=== PATIENT | male | born 1965 | race Caucasian/White ===

== ENCOUNTER 2017-04-01 12:21 | Inpatient (IN) | payer BC ==
[~2017-04-01] VITALS: Ht 172.7 cm; Wt 80.7 kg
[2017-04-01 12:45] VITALS: BP 130/80
[2017-04-01] MEDS ORDERED: dilTIAZem HCl 25mg/5ml Inj IVP ONE (12:45)
[2017-04-01 12:53] VITALS: BP 123/72
--- NOTE | 2017-04-01 12:54 | Emergency Room Report ---
History of Present Illness General Chief Complaint: Chest Pain Source: Patient Present Illness HPI 52-year-old male, history of SVT in the past, hyperlipidemia, p/w chest pressure and palpitations one hour. Chest pain started while he was just standing outside, and not exerting himself. Pressure localized to substernal area, no radiation to back or other areas, sharp in nature. + SOB. Denies palpitations, diaphoresis, n/v. Denies fever, chills, cough, abd pain. Denies trauma. Denies smoking, no family history of cardiac disease at a young age. Patient states that this has happened twice in the past, stated that he had 2 hospital to stabilize his heart rate. States he only takes aspirin however no other anticoagulation Allergies: Coded Allergies: No Known Allergies (Unverified , 04/01/17) Patient History Past Medical History: see triage record Past Surgical History: none Pertinent Family History: none Reviewed Nursing Documentation: PMH: Agreed, PSxH: Agreed Nursing Documentation-PMH Hx Cardiac Problems: Yes - a-fib Review of Systems All Other Systems: negative except mentioned in HPI Physical Exam Vital Signs Date Time Temp Pulse Resp B/P (MAP) Pulse Ox O2 Delivery O2 Flow Rate FiO2 04/01/17 12:18 97.8 140 18 110/80 98 Room Air 97.9 Sp02 EP Interpretation: reviewed, normal General Appearance: alert, GCS 15, non-toxic, moderate distress Head: normocephalic, atraumatic Eyes: bilateral eye normal inspection, bilateral eye PERRL, bilateral eye EOMI ENT: normal ENT inspection, normal pharynx, normal voice, moist mucus membranes Neck: normal inspection, full range of motion, supple Respiratory: normal inspection, lungs clear, normal breath sounds, no respiratory distress, no retraction, no wheezing, speaking full sentences, chest symmetrical Cardiovascular #1: no edema, tachycardia, irregularly irregular Cardiovascular #2: 2+ radial (R), 2+ radial (L) Gastrointestinal: normal inspection, non tender, soft, non-distended, no guarding Genitourinary: no CVA tenderness Musculoskeletal: normal inspection, back normal, normal range of motion, non- tender Neurologic: normal inspection, alert, oriented x3, responsive, motor strength/ tone normal, sensory intact, normal gait, speech normal Psychiatric: normal inspection, judgement/insight normal, memory normal Skin: normal inspection, normal color, no rash, warm/dry, well hydrated, normal turgor Procedures Critical Care Time Critical Care Time 40 minutes of CC time 52-year-old male, chest pain Found to be in atrial fibrillation with RVR VS: Tachycardic Airway patent. Not hypoxic. PLAN: IV access, labs, Cardizem Anticipate admission to Tele vs. [facility] CC time also includes review of labs, review of EMR, discussion with family and paperwork from SNF, d/w hospitalist CC could include dosing of pressors, additional Abx CC time does not include procedures Medical Decision Making Diagnostic Impression: Primary Impression: Atrial fibrillation with rapid ventricular response Additional Impression: ACS (acute coronary syndrome) ER Course 52-year-old male with chest pain, palpitations DDX: Found to be in atrial fibrillation with RVR ACS vs. CHF vs. pneumonia vs. gastritis/GERD vs. pneumothorax PE on differential however at this time there are other more likely diagnoses. Plan: IV access, obtain labs including troponin, EKG, CXR ASA already given by EMS Cardizem Anticipate admission ER course: Patient given Cardizem, heart rate went from 168 to 85. Now in normal sinus rhythm Disposition: Patient requires admission for atrial fibrillation D/W hospitalistn Dr Artis Please note that this Emergency Department Report was dictated using [employer] technology software, occasionally this can lead to erroneous entry secondary to interpretation by the dictation equipment. EKG Diagnostic Results #2 EP Interpretation: Yes Rate: tachy Rhythm: afib ST Segments: afib with rvr ASA given to patient: Yes EKG Diagnostic Results EP Interpretation: Yes Rate: normal Rhythm: afib ST Segments: No acute changes ASA given to patient: Yes Rhythm Strip EP Interpretation: Yes Rate: 160 Rhythm: afib Chest X-ray CXR: Ordered: Yes 1 view Indication: Chest pain EP interpretation: Yes Interpretation: No consolidation, no effusion, no PTX, no acute cardiopulmonary disease Impression: No acute disease Electronically signed by Caleb Nguyen MD Laboratory Tests Test 04/01/17 12:30 White Blood Count 8.4 K/UL (4.8-10.8) Red Blood Count 5.08 M/UL (4.70-6.10) Hemoglobin 16.1 G/DL (14.2-18.0) Hematocrit 44.2 % (42.0-52.0) Mean Corpuscular Volume 87 FL (80-99) Mean Corpuscular Hemoglobin 31.7 PG (27.0-31.0) H Mean Corpuscular Hemoglobin Concent 36.4 G/DL (32.0-36.0) H Red Cell Distribution Width 10.2 % (11.6-14.8) L Platelet Count 296 K/UL (150-450) Mean Platelet Volume 9.0 FL (6.5-10.1) Neutrophils (%) (Auto) 74.7 % (45.0-75.0) Lymphocytes (%) (Auto) 17.9 % (20.0-45.0) L Monocytes (%) (Auto) 6.0 % (1.0-10.0) Eosinophils (%) (Auto) 0.4 % (0.0-3.0) Basophils (%) (Auto) 1.1 % (0.0-2.0) Sodium Level 138 MMOL/L (136-145) Potassium Level 3.8 MMOL/L (3.5-5.1) Chloride Level 102 MMOL/L (98-107) Carbon Dioxide Level 25 MMOL/L (21-32) Anion Gap 12 mmol/L (5-15) Blood Urea Nitrogen 10 mg/dL (7-18) Creatinine 1.1 MG/DL (0.55-1.30) Estimate Glomerular Filtration Rate > 60 mL/min (>60) Glucose Level 146 MG/DL (74-106) H Calcium Level 9.9 MG/DL (8.5-10.1) Total Bilirubin 0.3 MG/DL (0.2-1.0) Aspartate Amino Transferase (AST) 25 U/L (15-37) Alanine Aminotransferase (ALT) 85 U/L (12-78) H Alkaline Phosphatase 89 U/L (46-116) Troponin I 0.000 ng/mL (0.000-0.056) Pro-B-Type Natriuretic Peptide 35 pg/mL (0-125) Total Protein 8.0 G/DL (6.4-8.2) Albumin 4.1 G/DL (3.4-5.0) Globulin 3.9 g/dL Albumin/Globulin Ratio 1.1 (1.0-2.7) Last Vital Signs Date Time Temp Pulse Resp B/P (MAP) Pulse Ox O2 Delivery O2 Flow Rate FiO2 04/01/17 12:18 97.8 140 18 110/80 98 Room Air 97.9 Disposition: ADMITTED INPATIENT Condition: Serious Referrals: NOT CHOSEN DOMINICK/,REFERRING (PCP) Caleb Nguyen M.D. Apr 01, 2017 12:54
[2017-04-01] MEDS ORDERED: dilTIAZem HCl 30mg tab ORAL ONE (13:00)
[2017-04-01] MEDS: Lexiscan 0.4mg/5ml syringe IV SCH (13:00)
[2017-04-01 13:01] LABS: BASOPHILS % (AUTO) 1.1 % (0.0-2.0); EOSINOPHILS % (AUTO) 0.4 % (0.0-3.0); HEMATOCRIT 44.2 % (42.0-52.0); HEMOGLOBIN 16.1 G/DL (14.2-18.0); LYMPHOCYTES % (AUTO) 17.9 % (20.0-45.0); MEAN CORPUSCULAR VOLUME 87 FL (80-99); NEUTROPHILS % (AUTO) 74.7 % (45.0-75.0); PLATELET COUNT 296 K/UL (150-450); RED BLOOD COUNT 5.08 M/UL (4.70-6.10); RED CELL DISTRIBUTION WIDTH 10.2 % (11.6-14.8); WHITE BLOOD COUNT 8.4 K/UL (4.8-10.8)
[2017-04-01 13:06] LABS: ANION GAP 12 mmol/L (5-15); BLOOD UREA NITROGEN 10 mg/dL (7-18); CALCIUM 9.9 MG/DL (8.5-10.1); CARBON DIOXIDE 25 MMOL/L (21-32); CHLORIDE 102 MMOL/L (98-107); CREATININE 1.1 MG/DL (0.55-1.30); POTASSIUM 3.8 MMOL/L (3.5-5.1); SODIUM 138 MMOL/L (136-145)
--- NOTE | 2017-04-01 13:11 | Diagnostic Imaging Report ---
Indication: Chest pain Technique: One view of the chest Comparison: none Findings: Lungs and pleural spaces are clear. Heart size is normal Impression: No acute process
[2017-04-01 13:18] LABS: ALANINE AMINOTRANSFERASE 85 U/L (12-78); ALBUMIN 4.1 G/DL (3.4-5.0); ALBUMIN/GLOBULIN RATIO 1.1 (1.0-2.7); ALKALINE PHOSPHATASE 89 U/L (46-116); ASPARTATE AMINO TRANSFERASE 25 U/L (15-37); BILIRUBIN,TOTAL 0.3 MG/DL (0.2-1.0)
[2017-04-01] MEDS ORDERED: ASPIRIN81 M3 PO (14:10)
[2017-04-01 14:11] VITALS: BP 130/85
[2017-04-01 16:00] VITALS: BP 130/89
[2017-04-01] MEDS ORDERED: Nitroglycerin Subl 0.4mg tab SL PRN (16:15)
--- NOTE | 2017-04-01 16:42 | Cardiac Electrophysiology PN ---
Subjective Subjective Dictated [id number] Objective Last 24 Hour Vital Signs Date Time Temp Pulse Resp B/P (MAP) Pulse Ox O2 Delivery O2 Flow Rate FiO2 04/01/17 16:00 97.5 72 18 130/89 99 Room Air 97.5 04/01/17 14:50 98.5 78 16 130/85 98 Room Air 98.3 04/01/17 14:11 98.3 87 22 130/85 99 Room Air 98.3 04/01/17 13:02 92 123/72 04/01/17 12:53 92 18 123/72 99 Room Air 04/01/17 12:48 150 145/70 04/01/17 12:45 140 18 130/80 98 Room Air 04/01/17 12:28 140 18 Room Air 04/01/17 12:18 97.8 140 18 110/80 98 Room Air 97.9 Laboratory Tests Test 04/01/17 12:30 White Blood Count 8.4 K/UL (4.8-10.8) Red Blood Count 5.08 M/UL (4.70-6.10) Hemoglobin 16.1 G/DL (14.2-18.0) Hematocrit 44.2 % (42.0-52.0) Mean Corpuscular Volume 87 FL (80-99) Mean Corpuscular Hemoglobin 31.7 PG (27.0-31.0) H Mean Corpuscular Hemoglobin Concent 36.4 G/DL (32.0-36.0) H Red Cell Distribution Width 10.2 % (11.6-14.8) L Platelet Count 296 K/UL (150-450) Mean Platelet Volume 9.0 FL (6.5-10.1) Neutrophils (%) (Auto) 74.7 % (45.0-75.0) Lymphocytes (%) (Auto) 17.9 % (20.0-45.0) L Monocytes (%) (Auto) 6.0 % (1.0-10.0) Eosinophils (%) (Auto) 0.4 % (0.0-3.0) Basophils (%) (Auto) 1.1 % (0.0-2.0) Sodium Level 138 MMOL/L (136-145) Potassium Level 3.8 MMOL/L (3.5-5.1) Chloride Level 102 MMOL/L (98-107) Carbon Dioxide Level 25 MMOL/L (21-32) Anion Gap 12 mmol/L (5-15) Blood Urea Nitrogen 10 mg/dL (7-18) Creatinine 1.1 MG/DL (0.55-1.30) Estimat Glomerular Filtration Rate > 60 mL/min (>60) Glucose Level 146 MG/DL (74-106) H Calcium Level 9.9 MG/DL (8.5-10.1) Total Bilirubin 0.3 MG/DL (0.2-1.0) Aspartate Amino Transf (AST/SGOT) 25 U/L (15-37) Alanine Aminotransferase (ALT/SGPT) 85 U/L (12-78) H Alkaline Phosphatase 89 U/L (46-116) Troponin I 0.000 ng/mL (0.000-0.056) Pro-B-Type Natriuretic Peptide 35 pg/mL (0-125) Total Protein 8.0 G/DL (6.4-8.2) Albumin 4.1 G/DL (3.4-5.0) Globulin 3.9 g/dL Albumin/Globulin Ratio 1.1 (1.0-2.7) TUCKER BUSH Apr 01, 2017 16:42
[2017-04-01 20:00] VITALS: BP 136/83
[2017-04-02] VITALS: BP 132/85
--- NOTE | 2017-04-02 | Consultation ---
DATE OF CONSULTATION: 04/01/2017 CARDIAC ELECTROPHYSIOLOGY CONSULTATION CONSULTING PHYSICIAN: Branden Viera M.D. REFERRING PHYSICIAN: Es Donaldson M.D. REASON FOR CONSULTATION: Atrial fibrillation with rapid ventricular response. HISTORY OF PRESENT ILLNESS: The patient is a very pleasant 52-year-old, [place] gentleman with history of SVT versus atrial fibrillation last year and hyperlipidemia who presented to the emergency room with sudden onset of chest pain and palpitations lasting about an hour. This happened while he was just standing and not exerting himself. He did not have any radiation to the back and other areas. In the emergency room, the patient was found to be in atrial fibrillation with rapid ventricular response with heart rate of 150 beats per minute with marked ST abnormalities with inferior subendocardial injury. The patient states that it has happened twice in the past . The patient does not have a regular social contact worker and takes only aspirin. PAST MEDICAL HISTORY: History of SVT versus atrial fibrillation. SOCIAL HISTORY: He lives at home. Does not smoke or drink alcohol. Does not do any drugs. FAMILY HISTORY: Noncontributory. REVIEW OF SYSTEMS: His review of systems was performed and was negative other than what was mentioned in history of present illness. PHYSICAL EXAMINATION: VITAL SIGNS: Blood pressure is 130/109; pulse is 72, as he converted to sinus rhythm; respirations 18; and he is afebrile. HEAD AND NECK: No JVD or carotid bruits. LUNGS: Clear. CARDIOVASCULAR: Regular S1 and S2. No gallop or murmur. ABDOMEN: Soft. EXTREMITIES: No pitting edema. LABORATORY AND DIAGNOSTIC DATA: His initial EKG on 04/01/2017 at 1224 hours showed atrial fibrillation with rapid ventricular response of [address]-T wave abnormalities. His EKG on 04/01/2017 at 1302 hours showed atrial fibrillation at a rate of 93 with LVH. Labs show white count of 8.4, hemoglobin of 16.1, hematocrit 44.2, and platelet count of 296. Sodium 138, potassium 3.8, BUN of 10, creatinine 1.1, and glucose of 146. His troponin is negative. BNP is 35. ASSESSMENT AND PLAN: 1. Recurrent atrial fibrillation with rapid ventricular response. The patient is on Lovenox 1 mg/kg subcutaneous b.i.d. at this time and we will start him on Cardizem CD 180 mg daily. We will start him also on flecainide 50 mg b.i.d. if his echocardiogram shows normal left ventricular systolic function and if his nuclear stress test tomorrow shows no evidence of ischemia. 2. Chest pain and ischemia on the 12-lead EKG. We will completely rule out myocardial infarction protocol. We will get an echocardiogram and schedule for nuclear stress test for further evaluation. In the meantime, continue the patient on aspirin. 3. Hyperlipidemia. Resume Lipitor. Thank you very much, Dr. Donaldson, for allowing me to participate in the care of this patient. Please do not hesitate to contact me for any questions regarding my evaluation. Branden Viera M.D. DR: Aleisha JOB#: [id number] CC:
[2017-04-02 03:15] LABS: BASOPHILS % (AUTO) 1.8 % (0.0-2.0); EOSINOPHILS % (AUTO) 1.4 % (0.0-3.0); HEMATOCRIT 44.1 % (42.0-52.0); HEMOGLOBIN 15.6 G/DL (14.2-18.0); LYMPHOCYTES % (AUTO) 28.5 % (20.0-45.0); MEAN CORPUSCULAR VOLUME 88 FL (80-99); MONOCYTES % (AUTO) 10.2 % (1.0-10.0); NEUTROPHILS % (AUTO) 58.1 % (45.0-75.0); PLATELET COUNT 287 K/UL (150-450); RED BLOOD COUNT 5.01 M/UL (4.70-6.10); RED CELL DISTRIBUTION WIDTH 10.4 % (11.6-14.8); WHITE BLOOD COUNT 6.9 K/UL (4.8-10.8)
[2017-04-02 03:34] LABS: ANION GAP 5 mmol/L (5-15); BLOOD UREA NITROGEN 16 mg/dL (7-18); CALCIUM 9.4 MG/DL (8.5-10.1); CARBON DIOXIDE 29 MMOL/L (21-32); CHLORIDE 102 MMOL/L (98-107); CREATININE 1.1 MG/DL (0.55-1.30); POTASSIUM 4.4 MMOL/L (3.5-5.1); SODIUM 136 MMOL/L (136-145)
[2017-04-02 04:00] VITALS: BP 125/85
[2017-04-02 08:00] VITALS: BP 137/82
[2017-04-02] MEDS: Aspirin Baby 81mg ORAL SCH (08:54)
[2017-04-02] MEDS: dilTIAZem HCl CD 180mg cap ORAL SCH (08:57)
[2017-04-02 12:00] VITALS: BP 134/87
--- NOTE | 2017-04-02 13:13 | Cardiology Report ---
APPROVED REPORT EXAM: Two-dimensional and M-mode echocardiogram with Doppler and color Doppler. INDICATION Palpitations M-Mode DIMENSIONS IVSd1.3 (0.7-1.1cm)Left Atrium (MM)3.1 (1.6-4.0cm) LVDd4.5 (3.5-5.6cm)Aortic Root3.3 (2.0-3.7cm) PWd1.1 (0.7-1.1cm)Aortic Cusp Exc.1.9 (1.5-2.0cm) LVDs3.2 (2.5-4.0cm) PWs1.7 cm Normal left ventricular chamber size, systolic function and wall motion. Left ventricular ejection fraction estimated to be 60-65 %. Mild left ventricular hypertrophy. No evidence of pericardial effusion. Mild right atrial enlargement. All other cardiac chamber sizes are within normal limits. Mild focal aortic valve sclerosis with adequate cusp excursion. Mildly thickened mitral valve leaflets with normal excursion. Mild mitral annulus and aortic root calcification. Normal pulmonic valve structure. Normal tricuspid valve structure. IVC at normal size with physiologic collapse. A color flow and spectral Doppler study was performed and revealed: Trace aortic regurgitation. Mild mitral regurgitation. Mitral diastolic velocities suggest reduced left ventricular relaxation c/w mild LV diastolic dysfunction (Grade I ). Mild tricuspid regurgitation. Tricuspid systolic velocities suggests peak right ventricular systolic pressure of 36 mmHg, consistent with mild pulmonary hypertension. Mild pulmonic regurgitation present.
--- NOTE | 2017-04-02 13:24 | Consultation ---
History of Present Illness General Date patient seen: Apr 02, 2017 Chief Complaint: Chest Pain Present Illness HPI 52-year-old male, history of SVT , hyperlipidemia, p/w chest pressure and palpitations one hour prior to presentation . + SOB. Denies smoking, no family history of cardiac disease at a young age. Patient states that this has happened twice in the past, stated that he had 2 hospital to stabilize his heart rate. He was in afib in ER but on the floor he was in sinus. He is admitted to rule our ACS and monitor his heart rate and rhythm. Allergies: Coded Allergies: No Known Allergies (Unverified , 04/01/17) Medication History Miscellaneous Medications Aspirin (Aspirin), 81 MG PO, (Reported) Patient History Healthcare decision maker Resuscitation status Full Code Advanced Directive on File No Past Medical/Surgical History Past Medical/Surgical History: (1) Atrial fibrillation with rapid ventricular response Review of Systems Cardiovascular: Reports: chest pain, palpitations All Other Systems: negative except mentioned in HPI Physical Exam General Appearance: WD/WN Lines, tubes and drains: peripheral HEENT: normocephalic, atraumatic Respiratory/Chest: chest wall non-tender, lungs clear Breasts: no masses Cardiovascular/Chest: normal peripheral pulses Genitourinary/Rectal: normal genital exam Extremities: normal range of motion Skin Exam: normal pigmentation 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 grossly normal Last 24 Hour Vital Signs Date Time Temp Pulse Resp B/P (MAP) Pulse Ox O2 Delivery O2 Flow Rate FiO2 04/02/17 12:00 98.1 65 20 134/87 96 Room Air 98.1 04/02/17 12:00 61 04/02/17 08:57 72 137/82 04/02/17 08:00 70 04/02/17 08:00 97.7 71 20 137/82 95 Room Air 97.7 04/02/17 04:00 97.5 64 18 125/85 96 Room Air 97.5 04/02/17 04:00 62 04/02/17 00:00 66 04/02/17 00:00 98.1 76 20 132/85 96 Room Air 98.1 04/01/17 20:00 97.9 79 20 136/83 96 Room Air 97.9 04/01/17 20:00 75 04/01/17 16:00 97.5 72 18 130/89 99 Room Air 97.5 04/01/17 16:00 73 04/01/17 14:50 98.5 78 16 130/85 98 Room Air 98.3 04/01/17 14:11 98.3 87 22 130/85 99 Room Air 98.3 Intake and Output 04/01/17 04/02/17 19:00 07:00 Intake Total 270 ml 300 ml Balance 270 ml 300 ml Intake Oral 120 ml 300 ml IV Total 150 ml # Bowel Movements 1 Laboratory Tests Test 04/01/17 19:15 04/02/17 02:50 D-Dimer 0.26 mg/L FEU (0.00-0.49) Troponin I 0.011 ng/mL (0.000-0.056) 0.003 ng/mL (0.000-0.056) White Blood Count 6.9 K/UL (4.8-10.8) Red Blood Count 5.01 M/UL (4.70-6.10) Hemoglobin 15.6 G/DL (14.2-18.0) Hematocrit 44.1 % (42.0-52.0) Mean Corpuscular Volume 88 FL (80-99) Mean Corpuscular Hemoglobin 31.0 PG (27.0-31.0) Mean Corpuscular Hemoglobin Concent 35.3 G/DL (32.0-36.0) Red Cell Distribution Width 10.4 % (11.6-14.8) L Platelet Count 287 K/UL (150-450) Mean Platelet Volume 9.4 FL (6.5-10.1) Neutrophils (%) (Auto) 58.1 % (45.0-75.0) Lymphocytes (%) (Auto) 28.5 % (20.0-45.0) Monocytes (%) (Auto) 10.2 % (1.0-10.0) H Eosinophils (%) (Auto) 1.4 % (0.0-3.0) Basophils (%) (Auto) 1.8 % (0.0-2.0) Sodium Level 136 MMOL/L (136-145) Potassium Level 4.4 MMOL/L (3.5-5.1) Chloride Level 102 MMOL/L (98-107) Carbon Dioxide Level 29 MMOL/L (21-32) Anion Gap 5 mmol/L (5-15) Blood Urea Nitrogen 16 mg/dL (7-18) Creatinine 1.1 MG/DL (0.55-1.30) Estimat Glomerular Filtration Rate > 60 mL/min (>60) Glucose Level 103 MG/DL (74-106) Calcium Level 9.4 MG/DL (8.5-10.1) Pro-B-Type Natriuretic Peptide 62 pg/mL (0-125) Thyroid Stimulating Hormone (TSH) 2.268 uiU/mL (0.358-3.740) Free Thyroxine 0.89 NG/DL (0.76-1.46) Height (Feet): 5 Height (Inches): 8.00 Weight (Pounds): 178 Medications Current Medications Medications (Trade) Dose Ordered Sig/Yadira Route PRN Reason Start Time Stop Time Status Last Admin Dose Admin Acetaminophen (Tylenol) 650 mg Q4H PRN ORAL Mild Pain/Temp > 100.5 04/01/17 16:15 05/01/17 16:14 Aspirin (ASA) 81 mg DAILY ORAL 04/02/17 09:00 05/02/17 08:59 04/02/17 08:54 Diltiazem HCl (Cardizem CD) 180 mg DAILY ORAL 04/02/17 09:00 05/02/17 08:59 04/02/17 08:57 Nitroglycerin (Ntg) 0.4 mg Q5MIN X 3 DOSES PRN SL Prn Chest Pain 04/01/17 16:15 05/01/17 16:14 Regadenoson (Lexiscan) 0.4 mg ONCE IV 04/01/17 17:00 04/02/17 23:59 Assessment/Plan Problem List: (1) ACS (acute coronary syndrome) ICD Codes: I24.9 - Acute ischemic heart disease, unspecified SNOMED: 104381224 (2) Atrial fibrillation with rapid ventricular response ICD Codes: I48.91 - Unspecified atrial fibrillation SNOMED: 531200792789980 Assessment/Plan serial troponin, echo, cariology to follow f/u stress test results. symptomatic treatment BRAD GARZA Apr 02, 2017 13:24
--- NOTE | 2017-04-02 15:06 | Cardiology Report ---
APPROVED REPORT EKG Measurement Heart [id number] Normal sinus rhythm Normal ECG
--- NOTE | 2017-04-02 15:09 | Cardiology Report ---
APPROVED REPORT EKG Measurement Heart [id number] Atrial fibrillation Minimal voltage criteria for LVH, may be normal variant Abnormal ECG
[2017-04-02 16:00] VITALS: BP 125/77
--- NOTE | 2017-04-02 16:34 | Cardiac Electrophysiology PN ---
Assessment/Plan Assessment/Plan 1. Recurrent atrial fibrillation with rapid ventricular response. On Cardizem CD 180 mg daily and aspirin. Start him on flecainide 50 mg b.i.d. as his echocardiogram shows normal left ventricular systolic function 2. Chest pain and ischemia on the 12-lead EKG. Ruled out myocardial infarction and echocardiogram showed Nl EF. Nuclear stress test result pending 3. Hyperlipidemia. Resume Lipitor. Subjective Subjective Just had nuclear stress test today. Remained in SR Objective Last 24 Hour Vital Signs Date Time Temp Pulse Resp B/P (MAP) Pulse Ox O2 Delivery O2 Flow Rate FiO2 04/02/17 16:00 97.9 72 20 125/77 96 Room Air 97.9 04/02/17 12:00 98.1 65 20 134/87 96 Room Air 98.1 04/02/17 12:00 61 04/02/17 08:57 72 137/82 04/02/17 08:00 70 04/02/17 08:00 97.7 71 20 137/82 95 Room Air 97.7 04/02/17 04:00 97.5 64 18 125/85 96 Room Air 97.5 04/02/17 04:00 62 04/02/17 00:00 66 04/02/17 00:00 98.1 76 20 132/85 96 Room Air 98.1 04/01/17 20:00 97.9 79 20 136/83 96 Room Air 97.9 04/01/17 20:00 75 Intake and Output 04/01/17 04/02/17 19:00 07:00 Intake Total 270 ml 300 ml Balance 270 ml 300 ml Intake Oral 120 ml 300 ml IV Total 150 ml # Bowel Movements 1 Laboratory Tests Test 04/01/17 19:15 04/02/17 02:50 D-Dimer 0.26 mg/L FEU (0.00-0.49) Troponin I 0.011 ng/mL (0.000-0.056) 0.003 ng/mL (0.000-0.056) White Blood Count 6.9 K/UL (4.8-10.8) Red Blood Count 5.01 M/UL (4.70-6.10) Hemoglobin 15.6 G/DL (14.2-18.0) Hematocrit 44.1 % (42.0-52.0) Mean Corpuscular Volume 88 FL (80-99) Mean Corpuscular Hemoglobin 31.0 PG (27.0-31.0) Mean Corpuscular Hemoglobin Concent 35.3 G/DL (32.0-36.0) Red Cell Distribution Width 10.4 % (11.6-14.8) L Platelet Count 287 K/UL (150-450) Mean Platelet Volume 9.4 FL (6.5-10.1) Neutrophils (%) (Auto) 58.1 % (45.0-75.0) Lymphocytes (%) (Auto) 28.5 % (20.0-45.0) Monocytes (%) (Auto) 10.2 % (1.0-10.0) H Eosinophils (%) (Auto) 1.4 % (0.0-3.0) Basophils (%) (Auto) 1.8 % (0.0-2.0) Sodium Level 136 MMOL/L (136-145) Potassium Level 4.4 MMOL/L (3.5-5.1) Chloride Level 102 MMOL/L (98-107) Carbon Dioxide Level 29 MMOL/L (21-32) Anion Gap 5 mmol/L (5-15) Blood Urea Nitrogen 16 mg/dL (7-18) Creatinine 1.1 MG/DL (0.55-1.30) Estimat Glomerular Filtration Rate > 60 mL/min (>60) Glucose Level 103 MG/DL (74-106) Calcium Level 9.4 MG/DL (8.5-10.1) Pro-B-Type Natriuretic Peptide 62 pg/mL (0-125) Thyroid Stimulating Hormone (TSH) 2.268 uiU/mL (0.358-3.740) Free Thyroxine 0.89 NG/DL (0.76-1.46) Objective HEAD AND NECK: No JVD or carotid bruits. LUNGS: Clear. CARDIOVASCULAR: Regular S1 and S2. No gallop or murmur. ABDOMEN: Soft. EXTREMITIES: No pitting edema. TUCKER BUSH Apr 02, 2017 16:34
[2017-04-02] MEDS: Lexiscan 0.4mg/5ml syringe IV SCH (17:00)
[2017-04-02 20:00] VITALS: BP 122/86
[2017-04-03] VITALS: BP 155/78
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
[2017-04-03 04:00] VITALS: BP 128/79
--- NOTE | 2017-04-03 08:23 | Diagnostic Imaging Report ---
Indications: Chest pain Technique: Single day single isotope protocol utilized. Initially, resting images obtained using IV administration 9.7 millicuries 99M technetium Myoview. Subsequently, patient underwent lexiscan stress testing. See cardiology report for details. During adenosine infusion, IV administration 3 2 mCi 99 M technetium Myoview. SPECT and planar images obtained. SPECT images gated to 8 phases of the cardiac cycle were also obtained, and reformatted into cine images for evaluation of ejection fraction. Comparison: none Findings: Per cardiology report, patient experienced no symptoms. Per cardiology report, resting EKG demonstrates normal sinus rhythm. No ST-T wave changes noted during the infusion. Imaging demonstrates equivocal fixed perfusion defect in the inferior wall near the apex, versus artifact. No definite reversible perfusion defects are demonstrated. Normal left ventricular chamber size. Calculated post stress ejection fraction 75%. No focal wall motion abnormality Impression: Nonischemic clinical response to pharmacologic stress, per cardiology report Nonischemic electrocardiographic response to pharmacologic stress, per cardiology report Equivocal small fixed perfusion defect in the inferior wall near the apex, could represent a small infarct but suspect artifactual. Negative for ischemia, at level of stress achieved Calculated post stress ejection fraction greater than 70%
[2017-04-03 09:00] VITALS: BP 120/78
[2017-04-03] MEDS: Aspirin Baby 81mg ORAL SCH (09:36)
[2017-04-03] MEDS: dilTIAZem HCl CD 180mg cap ORAL SCH (09:37)
[2017-04-03 12:00] VITALS: BP 127/88
--- NOTE | 2017-04-03 15:13 | Pulmonology Progress Note ---
Assessment/Plan Problems: (1) ACS (acute coronary syndrome) (2) Atrial fibrillation with rapid ventricular response Assessment/Plan all noted sinus rhythm now dc planning if of with cardiologis Nonischemic electrocardiographic response to pharmacologic stress, per cardiology report Equivocal small fixed perfusion defect in the inferior wall near the apex, could represent a small infarct but suspect artifactual. Negative for ischemia, at level of stress achieved Calculated post stress ejection fraction greater than 70% Subjective ROS Limited/Unobtainable: No Constitutional: Reports: no symptoms HEENT: Repors: no symptoms Respiratory: Reports: no symptoms Allergies: Coded Allergies: No Known Allergies (Unverified , 04/01/17) Objective Last 24 Hour Vital Signs Date Time Temp Pulse Resp B/P (MAP) Pulse Ox O2 Delivery O2 Flow Rate FiO2 04/03/17 12:00 97.5 62 17 127/88 97 Room Air 97.5 04/03/17 12:00 70 04/03/17 09:37 79 120/78 04/03/17 09:00 97.0 63 18 120/78 98 Room Air 97.0 04/03/17 08:00 67 04/03/17 04:00 58 04/03/17 04:00 98.5 60 20 128/79 98 Room Air 98.5 04/03/17 00:00 97.6 64 20 155/78 98 Room Air 97.6 04/03/17 00:00 86 04/02/17 20:00 97.0 71 20 122/86 97 Room Air 97.0 04/02/17 20:00 68 04/02/17 16:00 97.9 72 20 125/77 96 Room Air 97.9 04/02/17 16:00 74 Intake and Output 04/02/17 04/03/17 19:00 07:00 Intake Total 640 ml Balance 640 ml Intake Oral 640 ml # Voids 3 1 General Appearance: WD/WN HEENT: normocephalic Respiratory/Chest: chest wall non-tender, lungs clear Cardiovascular: normal peripheral pulses, regular rhythm, no JVD Abdomen: non distended Genitourinary: normal external genitalia Skin: no lesions Current Medications Medications (Trade) Dose Ordered Sig/Yadira Route PRN Reason Start Time Stop Time Status Last Admin Dose Admin Acetaminophen (Tylenol) 650 mg Q4H PRN ORAL Mild Pain/Temp > 100.5 04/01/17 16:15 05/01/17 16:14 04/02/17 20:41 Aspirin (ASA) 81 mg DAILY ORAL 04/02/17 09:00 05/02/17 08:59 04/03/17 09:36 Atorvastatin Calcium (Lipitor) 10 mg BEDTIME ORAL 04/02/17 21:00 05/02/17 20:59 04/02/17 20:36 Diltiazem HCl (Cardizem CD) 180 mg DAILY ORAL 04/02/17 09:00 05/02/17 08:59 04/03/17 09:37 Flecainide Acetate (Tambocor) 50 mg Q12HR@0630,1830 ORAL 04/02/17 18:30 05/02/17 18:29 04/03/17 05:59 Nitroglycerin (Ntg) 0.4 mg Q5MIN X 3 DOSES PRN SL Prn Chest Pain 04/01/17 16:15 05/01/17 16:14 BRAD GARZA Apr 03, 2017 15:13
[2017-04-03 16:00] VITALS: BP 116/82
--- NOTE | 2017-04-03 16:48 | Cardiac Electrophysiology PN ---
Assessment/Plan Assessment/Plan 1. Recurrent atrial fibrillation with rapid ventricular response. On Cardizem CD 180 mg daily,aspirin and flecainide 50 mg b.i.d. Echocardiogram shows normal left ventricular systolic function 2. Chest pain and ischemia on the 12-lead EKG. Ruled out myocardial infarction and echocardiogram showed Nl EF. Nuclear stress test showed no ischemia 3. Hyperlipidemia. On Lipitor. OK to DC DW RN Subjective Subjective Nuclear stress test showed no ischemia. Remained in SR Objective Last 24 Hour Vital Signs Date Time Temp Pulse Resp B/P (MAP) Pulse Ox O2 Delivery O2 Flow Rate FiO2 04/03/17 16:00 98.4 69 17 116/82 98 Room Air 98.4 04/03/17 12:00 97.5 62 17 127/88 97 Room Air 97.5 04/03/17 12:00 70 04/03/17 09:37 79 120/78 04/03/17 09:00 97.0 63 18 120/78 98 Room Air 97.0 04/03/17 08:00 67 04/03/17 04:00 58 04/03/17 04:00 98.5 60 20 128/79 98 Room Air 98.5 04/03/17 00:00 97.6 64 20 155/78 98 Room Air 97.6 04/03/17 00:00 86 04/02/17 20:00 97.0 71 20 122/86 97 Room Air 97.0 04/02/17 20:00 68 Intake and Output 04/02/17 04/03/17 19:00 07:00 Intake Total 640 ml Balance 640 ml Intake Oral 640 ml # Voids 3 1 Objective HEAD AND NECK: No JVD or carotid bruits. LUNGS: Clear. CARDIOVASCULAR: Regular S1 and S2. No gallop or murmur. ABDOMEN: Soft. EXTREMITIES: No pitting edema. TUCKER BUSH Apr 03, 2017 16:48
--- NOTE | 2017-04-04 15:15 | Discharge Summary ---
Discharge Summary Hospital Course Date of Admission Apr 01, 2017 at 13:08 Date of Discharge Apr 03, 2017 at 17:20 Admitting Diagnosis afib with rvr HPI Steve Bledsoe is a 52 year old male who was admitted on Apr 01, 2017 at 13:08 for Atrial Fibrillation With Rapid Ventricular Respons Hospital Course [id number] Discharge Discharge Disposition Patient was discharged to Home (01) Discharge Diagnoses: Racheal Jose NP Apr 04, 2017 15:15
--- NOTE | 2017-04-05 01:45 | Discharge Summary 2 SIG ---
DATE OF ADMISSION: 04/01/2017 DATE OF DISCHARGE: 04/03/2017 CONSULTANTS: 1. Chastity Venegas M.D. 2. Branden Viera M.D. BRIEF HOSPITAL COURSE: The patient is a 52-year-old male with history of SVT in the past and hyperlipidemia, presented to ED complaining of chest pressure and palpitations for an hour. Chest pain started while he was standing. It was nonexertional. Pain was localized to the substernal area with no radiation to the back or other areas, described to be sharp in nature with associated shortness of breath. The patient denies smoking. Denies family history of cardiac disease. He stated that this happened twice and had two hospitalizations to stabilize his heart rate. He only takes aspirin, however, no anticoagulation. On evaluation at ED, he was noted to be in atrial fibrillation with rapid ventricular response. He was given Cardizem. Heart rate went from 168 to 85 and converted to normal sinus rhythm. He had a chest x-ray done that showed no consolidation, no effusion, no pneumothorax, and no acute cardiopulmonary disease. Blood work did not show any leukocytosis. Troponin was negative. BNP was 35. The patient was given Lovenox subcutaneously and was started on Cardizem CD 180 mg daily and flecainide 50 mg twice a day. He was continued on aspirin and Lipitor 10 mg at bedtime. TSH was normal. He had an echocardiogram that showed ejection fraction of 60% to 65% with normal wall motion, trace aortic regurgitation, mild mitral regurgitation, and RVSP of 36 consistent with mild pulmonary hypertension. Troponin levels were negative. On 04/03/2017, he underwent myocardial perfusion scan, results were nonischemic. There was equivocal small fixed perfusion defect in the inferior wall near the apex, could represent small infarct, but suspect artifactual. Test was negative for ischemia at the level of stress achieved. He was then eventually cleared for discharge to continue Cardizem, aspirin, and flecainide and Lipitor. FINAL DIAGNOSES: 1. Recurrent atrial fibrillation with rapid ventricular response. 2. Hyperlipidemia. 3. Chest pain and ischemia ruled out, negative for myocardial infarction. DISPOSITION: The patient was discharged home. DISCHARGE MEDICATIONS: Refer to medication list. DISCHARGE INSTRUCTIONS: Follow up with PMD in a week. Es Donaldson M.D. I have been assigned to dictate discharge summary on this account and I was not involved in the patient's management. Racheal Jose N.P. DR: JIA JOB#: [id number] CC: CASE
== END 2017-04-03 17:20 | disposition home or self-care (01) | DRG 310 ==
LOC: EDBD 12:21 → EMR 12:30 → 2E 13:08 → EDBEDREQ 13:15
DX: I48.91 Unspecified atrial fibrillation (principal); I27.20 Pulmonary hypertension, unspecified; E78.5 Hyperlipidemia, unspecified; R07.9 Chest pain, unspecified; I34.0 Nonrheumatic mitral (valve) insufficiency
CPT/HCPCS: 36415; 71045; 78452; 80048; 80053; 83880; 84439; 84443; 84484; 85025; 85379; 93005; 93017; 93306; J2785